=== PATIENT | male | born 1955 | race Caucasian/White ===

== ENCOUNTER → 2016-08-25 | Outpatient (CLI) | payer BC ==
[~2016-08-25] MED LIST: ASPIRIN EC325 M1 PO; AVAPRO150 MG PO; FIBER CON625 MG PO; FLOMAX 0.4MG C0.4 MG PO; GLUCOPHAGE 850850 MG PO; JANUVIA50 MG PO; NEURONTIN100 MG OR; NEXIUM40 MG PO; PLAVIX75 MG PO; ZYRTEC10 M3 PO
[2016-08-25 13:45] LABS: AEROMONAS NOT DETECTED (NOT DETECTE); ASTROVIRUS NOT DETECTED (NOT DETECTE); CYCLOSPORA CAYETANENSIS NOT DETECTED (NOT DETECTE); E COLI O157 NOT DETECTED (NOT DETECTE); ENTEROAGGREGATIVE E COLI NOT DETECTED (NOT DETECTE); ENTEROPATHOGENIC E COLI NOT DETECTED (NOT DETECTE); ENTEROTOXIGENIC E COLI NOT DETECTED (NOT DETECTE); NOROVIRUS NOT DETECTED (NOT DETECTE); SAPOVIRUS NOT DETECTED (NOT DETECTE); SHIGA-LIKE TOXIN PROD. E COLI NOT DETECTED (NOT DETECTE); SHIGELLA/ENTEROINVASIVE E COLI NOT DETECTED (NOT DETECTE); VIBRIO CHOLERAE NOT DETECTED (NOT DETECTE)
[2016-08-25 14:00] LABS: HEMOGLOBIN 16.6 g/dL (14.1-18.0); LYMPH # 2.4 K/mm3 (0.7-4.5); LYMPH % 14.2 % (10-50)
[2016-08-25 15:36] LABS: BUN 20 mg/dL (7-18)
[2016-08-25 15:40] LABS: GFR (ESTIMATED) 68 ML/MIN (>60)
[2016-08-25 17:14] LABS: NEUTROPHILS 45 % (42-76)
== END ==
LOC: LAB 13:32
PROVIDERS: Nurse Practitioner Family
DX: R10.84 Generalized abdominal pain (principal); R11.2 Nausea with vomiting, unspecified; R19.7 Diarrhea, unspecified